=== PATIENT | female | born 1985 | race Caucasian/White ===

== ENCOUNTER 2018-06-19 05:32 | Inpatient (IN) | payer OTHER ==
[~2018-06-19] VITALS: Ht 160 cm; Wt 97.7 kg
[~2018-06-19 05:32] MED LIST: DOCU-131 PO; IBUP-1222 PO; OXYC-302 PO; OXYC1TAB7 PO; PREN1TAB60 PO
[2018-06-19] MEDS ORDERED: LACTATED RINGERS 1,000 ML IV SCH (05:34)
[2018-06-19] MEDS ORDERED: NEWBORN KIT ONE (05:37)
[2018-06-19] MEDS ORDERED: SODIUM CITRATE/CITRIC ACID 15 ML UDC ONE (05:38)
[2018-06-19] MEDS ORDERED: METOCLOPRAMIDE 5 MG/ML, 2ML ONE (05:38)
[2018-06-19] MEDS ORDERED: OXYTOCIN 30U/ 0.9% NaCL 500ML 500 ML ONE (05:38)
[2018-06-19 05:44] VITALS: BP 108/71
[2018-06-19] MEDS ORDERED: SODIUM CITRATE/CITRIC ACID 15 ML UDC PO ONE (06:00)
[2018-06-19] MEDS ORDERED: LACTATED RINGERS 1,000 ML IVBOLUS ONE (06:00)
[2018-06-19] MEDS ORDERED: METOCLOPRAMIDE 5 MG/ML, 2ML IV ONE (06:00)
[2018-06-19 06:07] LABS: BASOPHILS # (AUTO) 0.02 x10^3/uL (0-0.1); BASOPHILS % (AUTO) 0 % (0-1); EOSINOPHILS # (AUTO) 0.08 x10^3/uL (0-0.4); EOSINOPHILS % (AUTO) 1 % (1-7); LYMPHOCYTES % (AUTO) 23 % (22-44); MD NO; MEAN CORPUSCULAR HEMOGLOBIN 28.2 pg (27.0-34.8); MEAN CORPUSCULAR HGB CONC 32.9 g/dL (32.4-35.8); MEAN CORPUSCULAR VOLUME 85.5 fL (80-100); MEAN PLATELET VOLUME 6.4 fL (7.4-10.4); MONOCYTES # (AUTO) 0.53 x10^3/uL (0.2-0.8); MONOCYTES % (AUTO) 8 % (2-9); NEUTROPHILS # (AUTO) 4.62 x10^3/uL (1.8-6.8); NEUTROPHILS % (AUTO) 67 % (42-75); PLATELET COUNT 297 x10^3/uL (130-400); RED BLOOD COUNT 4.02 x10^6/uL (3.82-5.3); RED CELL DISTRIBUTION WIDTH 13.7 % (9.6-15.2)
[2018-06-19] MEDS ORDERED: EPINEPHRINE 1 MG/ML, 1ML ONE (07:14)
[2018-06-19] MEDS ORDERED: CEFAZOLIN 1,000 MG ONE (07:14)
[2018-06-19] MEDS ORDERED: OXYTOCIN 10 UNITS/ML, 1ML ONE (07:14)
[2018-06-19] MEDS ORDERED: EPHEDRINE 50 MG/ML, 1ML ONE (07:14)
[2018-06-19] MEDS: LACTATED RINGERS 1,000 ML IV SCH ×5 (07:49→23:49)
[2018-06-19] MEDS ORDERED: OXYcodone IR 5MG TABLET PO PRN (08:00)
[2018-06-19] MEDS ORDERED: SIMETHICONE 80 MG CHEW TAB PO PRN (08:00)
[2018-06-19] MEDS: KETOROLAC 30 MG/1 ML IV SCH ×3 (08:00→20:33)
[2018-06-19] MEDS ORDERED: METHYLERGONOVINE 0.2 MG/ML IM PRN (08:00)
[2018-06-19] MEDS ORDERED: MISOPROSTOL 200 MCG TABLET SL PRN (08:00)
[2018-06-19] MEDS ORDERED: ONDANSETRON 2MG/ML, 2ML IV PRN (08:00)
[2018-06-19] MEDS ORDERED: DIPH,PERTUSS(ACELL),TET VAC/PF NC IM-VACC PRN (08:00)
[2018-06-19] MEDS ORDERED: METOCLOPRAMIDE 5 MG/ML, 2ML IV PRN (08:00)
[2018-06-19] MEDS ORDERED: ACETAMINOPHEN 325 MG TABLET PO PRN (08:00)
[2018-06-19] MEDS ORDERED: CALCIUM CARBONATE 500 MG TAB.CHEW PO PRN (08:00)
[2018-06-19] MEDS ORDERED: MORPHINE SULFATE 4 MG/ML, 1ML IVPush PRN (08:00)
[2018-06-19] MEDS: DOCUSATE 100 MG CAPSULE PO SCH ×2 (09:00→20:32)
[2018-06-19] MEDS: PRENATAL VIT/IRON/FA 1 EACH TABLET PO SCH (09:00)
[2018-06-19] MEDS: OXYTOCIN 30U/ 0.9% NaCL 500ML 500 ML IV SCH ×2 (09:49→17:49)
[2018-06-19] MEDS ORDERED: OXYcodone 5 MG/5 ML ORAL.SOL UDC ONE (10:22)
[2018-06-19] MEDS ORDERED: OXYcodone 5 MG/5 ML ORAL.SOL UDC PO PRN (10:30)
[2018-06-19 11:05] VITALS: BP 113/70
[2018-06-19] MEDS: OXYcodone IR 5MG TABLET PO PRN ×3 (12:41→20:33)
[2018-06-19 14:20] LABS: BASOPHILS # (AUTO) 0.03 x10^3/uL (0-0.1); BASOPHILS % (AUTO) 0 % (0-1); EOSINOPHILS # (AUTO) 0.01 x10^3/uL (0-0.4); EOSINOPHILS % (AUTO) 0 % (1-7); LYMPHOCYTES # (AUTO) 1.22 x10^3/uL (1-3.4); LYMPHOCYTES % (AUTO) 12 % (22-44); MD NO; MEAN CORPUSCULAR HEMOGLOBIN 27.9 pg (27.0-34.8); MEAN CORPUSCULAR HGB CONC 32.4 g/dL (32.4-35.8); MEAN CORPUSCULAR VOLUME 85.9 fL (80-100); MEAN PLATELET VOLUME 6.6 fL (7.4-10.4); MONOCYTES # (AUTO) 0.55 x10^3/uL (0.2-0.8); MONOCYTES % (AUTO) 5 % (2-9); NEUTROPHILS # (AUTO) 8.85 x10^3/uL (1.8-6.8); NEUTROPHILS % (AUTO) 83 % (42-75); PLATELET COUNT 276 x10^3/uL (130-400); RED BLOOD COUNT 3.68 x10^6/uL (3.82-5.3); RED CELL DISTRIBUTION WIDTH 14.4 % (9.6-15.2)
[2018-06-19 14:50] VITALS: BP 101/63
[2018-06-19 19:30] VITALS: BP 100/67
[2018-06-20 01:30] VITALS: BP 100/63
[2018-06-20] MEDS: KETOROLAC 30 MG/1 ML IV SCH (03:10)
[2018-06-20] MEDS: OXYTOCIN 30U/ 0.9% NaCL 500ML 500 ML IV SCH ×2 (03:49→13:49)
[2018-06-20] MEDS: LACTATED RINGERS 1,000 ML IV SCH ×3 (03:49→13:49)
[2018-06-20 06:00] VITALS: BP 100/66
[2018-06-20] MEDS: OXYcodone IR 5MG TABLET PO PRN ×3 (08:52→17:34)
[2018-06-20] MEDS: IBUPROFEN 800 MG TABLET PO PRN ×2 (08:52→17:34)
[2018-06-20] MEDS: DOCUSATE 100 MG CAPSULE PO SCH ×2 (08:52→20:42)
[2018-06-20 09:00] VITALS: BP 96/62
[2018-06-20] MEDS: PRENATAL VIT/IRON/FA 1 EACH TABLET PO SCH (09:00)
[2018-06-20 19:00] VITALS: BP 106/71
[2018-06-21] MEDS: OXYcodone IR 5MG TABLET PO PRN ×3 (02:21→11:16)
[2018-06-21] MEDS: IBUPROFEN 800 MG TABLET PO PRN ×2 (04:53→12:59)
[2018-06-21] MEDS: DOCUSATE 100 MG CAPSULE PO SCH (07:10)
[2018-06-21 07:39] VITALS: BP 112/77
[2018-06-21] MEDS: PRENATAL VIT/IRON/FA 1 EACH TABLET PO SCH (08:22)
[2018-06-21] MEDS ORDERED: IBUP-1222 PO (08:46)
[2018-06-21] MEDS ORDERED: OXYC-302 PO (08:46)
== END 2018-06-21 13:06 | disposition home or self-care (01) | DRG 787 ==
LOC: LDIP 05:32 → 2NW 11:04
PROVIDERS: ADMIT Obstetrics & Gynecology; ATTEND Obstetrics & Gynecology
PROC: 10D00Z1 Extraction of Products of Conception, Low, Open Approach (ICD-10-PCS; principal; 2018-06-19)
DX: O34.211 Maternal care for low transverse scar from previous cesarean delivery (principal); O99.354 Diseases of the nervous system complicating childbirth; O69.81X0 Labor and delivery complicated by cord around neck, without compression, not applicable or unspecified; Z37.0 Single live birth; Z3A.39 39 weeks gestation of pregnancy; Z80.3 Family history of malignant neoplasm of breast; Z83.3 Family history of diabetes mellitus; G43.909 Migraine, unspecified, not intractable, without status migrainosus
CPT/HCPCS: 36415; 85025; 86850; 86900; 87340; G0378; J0171; J0690; J1885; J2590; J2765; J7120

== ENCOUNTER 2018-12-31 11:15 | Emergency (ER) | payer BC, OTHER ==
[~2018-12-31] VITALS: Ht 160 cm; Wt 92.2 kg
--- NOTE | 2018-12-31 11:56 | NUR ---
PT TO ED AFTER VISION CHANGES AND MEMORY LOSS AT WORK AROUND 9AM, SYMPTOMS HAVE NOW RESOLVED EXCEPT FOR NAVARRETE BEHIND L EYE WHICH SHE STATES FEELS LIKE A MIGRAINE SHE FREQUENTLY GETS. PT STATES SHE IS ONLY ABLE TO TAKE TYLENOL AT THIS TIME BECAUSE SHE IS BREAST FEEDING. PT RESTING IN [facility], CALL LIGHT WITHIN REACH.
--- NOTE | 2018-12-31 12:02 | NUR ---
MED STUDENT AT BEDSIDE FOR ASSESSMENT
[2018-12-31] MEDS: METOCLOPRAMIDE 5 MG/ML, 2ML IM ONE ×2 (13:00→13:06)
[2018-12-31 13:01] LABS: BASOPHILS # (AUTO) 0.03 x10^3/uL (0-0.1); BASOPHILS % (AUTO) 1 % (0-1); EOSINOPHILS % (AUTO) 2 % (1-7); LYMPHOCYTES # (AUTO) 1.79 x10^3/uL (1-3.4); LYMPHOCYTES % (AUTO) 28 % (22-44); MD NO; MEAN CORPUSCULAR HEMOGLOBIN 30.1 pg (27.0-34.8); MEAN CORPUSCULAR HGB CONC 33.7 g/dL (32.4-35.8); MEAN CORPUSCULAR VOLUME 89.4 fL (80-100); MEAN PLATELET VOLUME 7.1 fL (7.4-10.4); MONOCYTES % (AUTO) 5 % (2-9); NEUTROPHILS # (AUTO) 4.07 x10^3/uL (1.8-6.8); NEUTROPHILS % (AUTO) 65 % (42-75); PLATELET COUNT 331 x10^3/uL (130-400); RED BLOOD COUNT 4.93 x10^6/uL (3.82-5.3); RED CELL DISTRIBUTION WIDTH 13.1 % (9.6-15.2)
[2018-12-31] MEDS ORDERED: METOCLOPRAMIDE 5 MG/ML, 2ML ONE (13:01)
--- NOTE | 2018-12-31 13:07 | NUR ---
PT REFUSED IM INJECTION STATING "THAT WOULD HURT MORE THAN MY HEADACHE DOES NOW". AWARE.
[2018-12-31 13:12] LABS: ALBUMIN 4.2 g/dL (3.4-5.0); ANION GAP 7 mmol/L (5-15); CALCIUM 9.3 mg/dL (8.5-10.1); CHLORIDE 110 mmol/L (98-107); CREATININE 0.94 mg/dL (0.55-1.02)
--- NOTE | 2018-12-31 13:36 | NUR ---
PT RESTING IN GURNEY, NO NEEDS AT THIS TIME. STATES PAIN FEELS MUCH BETTER
--- NOTE | 2018-12-31 13:48 | NUR ---
PT TO CT
[2018-12-31 14:05] VITALS: BP 110/70
--- NOTE | 2018-12-31 14:06 | NUR ---
TASK RN: PT BACK FROM CT IN STABLE CONDITION. LIGHTS TURNED OFF. DOOR CLOSED FOR NOISE CANCELLATION. PT STATES SHE TAKES TYLENOL AND IBUPROFEN PRN FOR NAVARRETE THAT SEEMS TO HELP. PT WOULD PREFER TO AVOID MEDS IF ABLE. PT RESTING ON [employer]. MANDO. VSS.
--- NOTE | 2018-12-31 14:12 | NUR ---
TASK RN: PT CHART REVIEWED AND PLACED FOR RECHECK.
== END 2018-12-31 14:37 | disposition home or self-care (01) ==
LOC: ED 14:31
DX: G43.109 Migraine with aura, not intractable, without status migrainosus (principal); G43.B0 Ophthalmoplegic migraine, not intractable; Z90.49 Acquired absence of other specified parts of digestive tract
CPT/HCPCS: 36415; 70450; 80048; 82040; 84703; 85025; 99284; J2765